=== PATIENT | female | born 1960 | race Caucasian/White ===

== ENCOUNTER 2017-03-29 12:12 | Inpatient (IN) | payer BC, OTHER ==
[~2017-03-29 12:12] MED LIST: Iopamidol 370 76% 100 ML VIAL ONE
[2017-03-29] MEDS ORDERED: Zolpidem Tartrate 5 MG TAB PO PRN (12:48)
[2017-03-29] MEDS ORDERED: Ondansetron HCl/PF 4 MG/2 ML Vial IVP PRN (12:48)
--- NOTE | 2017-03-29 12:53 | PDOC.EVN ---
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 No known HX DM. Interventions pending: CBC, CMP, Blood cultures, CT pelvis. Meds per Dr guthrie: IV Vanco. Our team will follow in-house per Dr guthrie request. I will see her after she is fully admitted and settled in after nursing intake.
[2017-03-29 13:03] VITALS: BMI 39.6
[2017-03-29 13:22] LABS: #Basophils 0.1 thou/uL (0.0-0.2); #Monocytes 1.1 thou/uL (0.11-0.59); #Neutrophils 4.8 thou/uL (1.40-6.50); %Basophils 0.9 % (0.0-1.0); %Eosinophils 0.4 % (0.0-10.0); %Lymphocytes 25.5 % (21.0-51.0); %Monocytes 13.5 % (0.0-10.0); %Neutrophils 59.8 % (42.0-75.0); Mean Corpuscular HGB CONC 32.6 g/dL (32.0-36.0); Mean Corpuscular Hemoglobin 29.9 pg (27.0-31.0); Mean Corpuscular Volume 91.6 fl (81.0-99.0); Mean Platelet Volume 6.5 fL (7.4-10.4); Platelet Count 352 thou/uL (130-400); RBC Distribution Width 12.4 % (11.5-14.5); Red Blood Cell (RBC) Count 4.68 mill/uL (4.20-5.40)
[2017-03-29 13:30] LABS: Hemoglobin A1c 4.9 % (4.0-6.0)
[2017-03-29 13:42] LABS: ALT (SGPT) 13 U/L (8-55); AST (SGOT) 7 U/L (5-34); Albumin 4.3 g/dL (3.5-5.0); Alkaline Phosphatase 77 U/L (40-150); Anion Gap 13 mmol/L (10-20); BUN (Urea Nitrogen) 15 mg/dL (9.8-20.1); Bilirubin, Total 0.6 mg/dL (0.2-1.2); Calc. Creatinine Clearance 132 mL/min (70-130); Calcium 9.8 mg/dL (7.8-10.44); Carbon Dioxide 26 mmol/L (22-29); Chloride 101 mmol/L (98-107); Estimated GFR-MDRD 73; Globulin 3.9 g/dL (2.4-3.5); Glucose 90 mg/dL (70-105); Potassium 3.5 mmol/L (3.5-5.1); Protein, Total 8.2 g/dL (6.0-8.3); Sodium 136 mmol/L (136-145)
[2017-03-29] MEDS: Lactated Ringer's 1,000 ML IV SCH (14:30)
--- NOTE | 2017-03-29 14:48 | PDOC.EVN ---
Event Note - Event Note Event Note: @1440: Lab check: CBC normal, WBC 8. CMP normal with no hyperglycemia (glu 90). Hbaic pending. Blood cultures pending. CT done but results pending. I ordered motrin for pain prn. IV antibiotics: vanco.
[2017-03-29] MEDS: Ibuprofen 800 MG TAB PO PRN (15:24)
--- NOTE | 2017-03-29 15:29 | CT ---
CT OF THE PELVIS WITH IV CONTRAST: INDICATION: Ingrown hair in the pelvic region, concern for abscess. FINDINGS: There is marked reticulation and skin thickening involving the right labia majora. No definite overt drainable fluid collection is seen involving the right labia majora. There are some mildly prominen t right inguinal lymph nodes. There is scattered diverticula involving the colon. There is mild scattered degenerative change. IMPRESSION: Findings most concerning for cellulitis of the right labia majora with some reactive lymph nodes with in the right inguinal region. Clinical followup is recommended. POS: KATTY
--- NOTE | 2017-03-29 16:02 | HP ---
ADMISSION DIAGNOSIS: Right vulvar abscess. HISTORY OF PRESENT ILLNESS: Ms. Lexi Mcgraw is a 56-year-old female patient, who presented to the office today to be seen for red and swollen area around her labia. The patient reports that for approximately 5 days, she has had increasing pain, discomfort, and swelling in her right labia. The pain is now extending outside the area of the labia with increasing tenderness in her right groin and mons. The patient denies any pustular area or discharge or drainage from the labia. She does note warmth, tenderness, and swelling. She reports low grade fevers of up 100-101 at home and feels flu-like with fever and chills ; however, she denies any URI symptoms, nausea, vomiting, or diarrhea. The patient was seen in the office and evaluated on my exam in the office. The pain was noted to be out of proportion with the area of concern. Specifically, she had significant tenderness in the right groin with enlarged lymph nodes palpable and significant tenderness of the mons despite no evidence of cellulitis outside of the right labia. She agreed to I&D in the office where a wound culture was collected. Due to the pain, fevers, and concern for infection spreading beyond the visual area of cellulitis, we discussed admission for IV antibiotics and imaging. I discussed these findings with Dr. Tapia who agrees to OB Hospitalist management once the patient is admitted. PAST MEDICAL HISTORY: Significant for obesity with a BMI of 39, irritable bowel syndrome managed by Dr. Gandhi, depression, anxiety, and hypertension. MEDICATIONS: Estradiol 1 mg, fluoxetine 15 mg a day, Hyoscyamine sulfate ER 0.375 mg 1-2 times a day, metoprolol 50 mg once a day, valsartan/HCTZ 320/25 mg once a day. PAST SURGICAL HISTORY: Significant for hysterectomy, cholecystectomy, and lap band. SOCIAL HISTORY: The patient denies any drug or latex allergies. FAMILY HISTORY: Negative for any breast, uterine, ovarian, or colon cancers; is significant for her hypertension and hypercholesterolemia. REVIEW OF SYSTEMS: Significant as stated in the HPI, otherwise negative. PHYSICAL EXAMINATION: GENERAL: No acute distress, alert and oriented. VITAL SIGNS: Weight 233 pounds, pulse 62 beats per minute, blood pressure 122/ 82. BMI 39. LUNGS: Nonlabored breathing. ABDOMEN: Obese, soft, nontender. No palpable masses. GENITOURINARY: Normal appearing left labia. Right labia; swollen, red, warm, indurated with a small area of fluctuation which was drained. The entire area of the labial abscess is palpable with no vaginal tracking noted. The area of the abscess palpates approximately 5 cm anterior posterior 2-3 cm right to left and tracks approximately 3 cm deep towards the pelvis in the labia. Purulent fluid was noted at the time of I&D and collection of wound culture. Mons palpates tender, but no crepitus or erythema or warmth noted. The right groin palpates very tender with chain lymphadenopathy noted in the right left groin. Left groin normal. EXTREMITIES: Normal. No rashes. ASSESSMENT AND PLAN: Ms. Lexi Mcgraw is a 56-year-old female with a right labial abscess with symptoms extending outside of the labia to the mons and the groin with reported fevers at home as well as myalgias. The patient is status post incision and drainage of lesion with wound culture collected and sent to [place]. IV antibiotics and pain medications have been ordered. We chosen vancomycin to cover for the likelihood of MRSA; however, discussed that antibiotic choices may change once the preliminary wound culture report comes out. A CT of the pelvis has been ordered due to the extension and discomfort of the pain through the mons into the right groin and to rule out necrotizing fasciitis. The patient's home medications have been ordered for her. The plan of care has been discussed with Dr. Tapia, the OB hospitalist linen room houseperson today. MELECIO
[2017-03-29] MEDS: Vancomycin HCl 1.5 GM in Sodium Chloride 0.9% 250 ML 300 ML IVPB SCH (16:03)
--- NOTE | 2017-03-29 16:41 | PDOC.EVN ---
Event Note - Event Note Event Note: @1640: Patient seen at bedside. Clinically well. No past HX DM. She states she was wearing a poise pad due to recent couging/URI and suspects the pad may have irritated her labia. VSAFEB. Wound culture pending (separate J number)( CT with no evidence deep tissue involvement. Has diverticula. A/P: continue Antibiotics for now.
[2017-03-29] MEDS ORDERED: Prevnar 13-Val Conj/PF 0.5 ML SYRINGE IM ONE (18:45)
[2017-03-29] MEDS ORDERED: FLU VACC QS2017-18 36 mo. & older 0.5 ML SYRINGE IM ONE (18:45)
[2017-03-29] MEDS: Hyoscyamine Sulfate ER 0.375 mg Tablet PO SCH (22:12)
[2017-03-30] MEDS: Lactated Ringer's 1,000 ML IV SCH ×2 (02:31→17:02)
[2017-03-30] MEDS: Vancomycin HCl 1.5 GM in Sodium Chloride 0.9% 250 ML 300 ML IVPB SCH ×2 (02:31→13:32)
[2017-03-30] MEDS: Ibuprofen 800 MG TAB PO PRN ×2 (04:01→16:27)
--- NOTE | 2017-03-30 06:27 | PDOC.EVN ---
Event Note - Event Note Event Note: 03/30/17 @ 0620: Patient seen at bedside (WILDLIFE REFUGE SPECIALIST NOTE). HD #2 (admitted yesterday AM). S. Doing well, fells better O. Vitals are normal, afebrile. Labs: HbA1c is less than 5 (normal). CT with diverticula and cellulitis over right labia. Blood and wound culture pending (wound culture in EMR under different ACCOUNT NUMBER...L#). Meds: IV Vanco Assessment/Plan: Resolving Right labial abscess with improving cellulitis clinicaly: continue Antibiotics, await cultures, no evidence DM at this time ni WBC elevation at admit
[2017-03-30] MEDS: Hyoscyamine Sulfate ER 0.375 mg Tablet PO SCH ×2 (09:20→21:05)
[2017-03-30] MEDS: FLUoxetine HCl 20 MG CAP PO SCH (09:20)
[2017-03-30] MEDS: Estradiol 1 MG TAB PO SCH (09:20)
[2017-03-30] MEDS: Valsartan 80 MG TAB PO SCH (09:21)
[2017-03-30] MEDS: Hydrochlorothiazide 25 MG TAB PO SCH (10:08)
[2017-03-30] MEDS: Metoprolol Tartrate 50 MG TAB PO SCH (10:08)
[2017-03-31] MEDS: Lactated Ringer's 1,000 ML IV SCH (00:56)
[2017-03-31] MEDS: Vancomycin HCl 1.5 GM in Sodium Chloride 0.9% 250 ML 300 ML IVPB SCH (02:31)
[2017-03-31] MEDS ORDERED: Sodium Chloride 0.9% 10 ML ONE (04:44)
--- NOTE | 2017-03-31 08:01 | DIS ---
DATE OF ADMISSION: 03/29/2017 DATE OF DISCHARGE: 03/31/2017 ADMITTING DIAGNOSIS: Vulvar abscess. DISCHARGE DIAGNOSIS: Vulvar abscess. PROCEDURE: I and D at the bedside. CONSULTATIONS: None. HOSPITAL COURSE: The patient is a 56-year-old female, who was admitted to the hospital for IV antibi otics for a vulvar abscess. The patient was initially evaluated by Dr. Tapia, who performed an I and D at bedside for drainage and patient was placed on vancomycin. Cultures have come back now on hosp ital day #2, and confirming Staph aureus, cadena sensitive. The patient reports that, over her hospital stay, she has had significant improvement in her pain and swelling. PHYSICAL EXAMINATION: VITAL SIGNS: Today, blood pressure is 100/52, temperature 98.1, pulse is 68, respiratory rate of 20, satting 96% on room air. GENERAL: She appears to be in no acute distress. She is alert and oriented and cooperative and plea breanna to interact with. DISCHARGE INSTRUCTIONS: The patient will be discharged to home on doxycycline to be taken twice a da y for the next week. She has been given instructions to follow up with her primary DIGITAL EDITOR, Dr. Reynolds, at [facility] within the next week or to seek medical attention sooner if she notices increasing swelling, pain, redness, or fever. Again, the patient is being discharged to home on dox ycycline.
[2017-03-31 08:40] VITALS: BP 124/61; TEMP 97.9
[2017-03-31] MEDS: Hydrochlorothiazide 25 MG TAB PO SCH (08:43)
[2017-03-31] MEDS: Metoprolol Tartrate 50 MG TAB PO SCH (08:44)
[2017-03-31] MEDS: FLUoxetine HCl 20 MG CAP PO SCH (08:45)
[2017-03-31] MEDS: Hyoscyamine Sulfate ER 0.375 mg Tablet PO SCH (08:45)
[2017-03-31] MEDS: Estradiol 1 MG TAB PO SCH (08:46)
[2017-03-31] MEDS: Valsartan 80 MG TAB PO SCH (08:46)
== END 2017-03-31 09:00 | disposition home or self-care (01) | DRG 747 ==
LOC: 3SE 12:12
PROVIDERS: ADMIT Obstetrics & Gynecology; ATTEND Obstetrics & Gynecology
PROC: 0U9MXZZ Drainage of Vulva, External Approach (ICD-10-PCS; principal; 2017-03-30)
DX: N76.4 Abscess of vulva (principal); B95.61 Methicillin susceptible Staphylococcus aureus infection as the cause of diseases classified elsewhere; N76.2 Acute vulvitis
CPT/HCPCS: 36415; 72193; 80053; 80202; 83036; 85025; 87040; A4216; J3370; J7050

== ENCOUNTER 2017-05-09 12:58 | Outpatient (CLI) | payer BC | END 2017-05-09 12:59 | disposition home or self-care (01) | LOC: BICMAMMO 12:58 | PROVIDERS: ATTEND Obstetrics & Gynecology | DX: Z12.31 Encounter for screening mammogram for malignant neoplasm of breast (principal) | CPT/HCPCS: 77063; 77067 ==

== ENCOUNTER 2018-11-03 10:08 | Inpatient (IN) | payer BC ==
[2018-11-03 10:32] LABS: #Lymphocytes 2.4 thou/uL (1.20-3.40); #Monocytes 1.7 thou/uL (0.11-0.59); #Neutrophils 12.4 thou/uL (1.40-6.50); %Basophils 0.3 % (0.0-1.0); %Eosinophils 0.2 % (0.0-10.0); %Lymphocytes 14.5 % (21.0-51.0); %Monocytes 10.1 % (0.0-10.0); Hemoglobin 14.3 g/dL (12.0-16.0); Mean Corpuscular HGB CONC 33.2 g/dL (32.0-36.0); Mean Corpuscular Hemoglobin 29.6 pg (27.0-31.0); Mean Corpuscular Volume 88.9 fL (78.0-98.0); Mean Platelet Volume 6.7 fL (7.4-10.4); Platelet Count 411 thou/uL (130-400); RBC Distribution Width 12.5 % (11.5-14.5); Red Blood Cell (RBC) Count 4.82 mill/uL (4.20-5.40); White Blood Cell (WBC) Count 16.5 thou/uL (4.8-10.8)
[2018-11-03 10:43] LABS: ALT (SGPT) 15 U/L (8-55); AST (SGOT) 7 U/L (5-34); Albumin 4.2 g/dL (3.5-5.0); Alkaline Phosphatase 77 U/L (40-110); Anion Gap 12 mmol/L (10-20); BUN (Urea Nitrogen) 14 mg/dL (9.8-20.1); Bilirubin, Total 1.3 mg/dL (0.2-1.2); Calc. Creatinine Clearance 0 mL/min (70-130); Calcium 9.4 mg/dL (7.8-10.44); Carbon Dioxide 27 mmol/L (22-29); Chloride 101 mmol/L (98-107); Estimated GFR-MDRD 68; Globulin 3.5 g/dL (2.4-3.5); Glucose 102 mg/dL (70-105); Lipase 231 U/L (8-78); Potassium 3.6 mmol/L (3.5-5.1); Protein, Total 7.7 g/dL (6.0-8.3); Sodium 136 mmol/L (136-145)
[2018-11-03 11:34] LABS: Bacteria/HPF None Seen HPF (None Seen); Bilirubin Negative (Negative); Blood, Urine 1+ (Negative); Clarity Clear (Clear); Glucose, Urine (Dipstick) Normal (Negative); Leukocyte 25 Leu/uL (Negative); Nitrite Negative (Negative); Protein, Urine (Dipstick) 20 mg/dL (Neg-Trace); Urobilinogen Normal mg/dL (Less than 2); WBC/HPF 0-3 HPF (0-3)
[2018-11-03] MEDS ORDERED: Morphine 4 MG/ML VIAL ONE (11:34)
[2018-11-03] MEDS ORDERED: Ondansetron PF 4 MG/2 ML Vial ONE (11:34)
[2018-11-03] MEDS ORDERED: ISOVUE-370 76%-LOCM 1 ML ONE (12:17)
[2018-11-03] MEDS ORDERED: Iopamidol 370 76% 50 ML VIAL FS ONE (12:17)
[2018-11-03] MEDS ORDERED: Fentanyl 100 MCG/2 ML VIAL ONE (13:57)
--- NOTE | 2018-11-03 14:52 | CT ---
CT OF THE ABDOMEN AND PELVIS WITH IV CONTRAST INDICATION: Abdominal pain that radiates into the back with nausea vomiting for 2 days; history of di verticulitis COMPARISON: CT the abdomen and pelvis dated June 14, 2010 FINDINGS: ABDOMEN: Lung bases: There is elevation the right hemidiaphragm with mild right basilar atelectasis. Liver: No focal hepatic lesion is evident. Gallbladder: Surgically absent Pancreas: There is some peripancreatic inflammatory stranding seen near the pancreatic head. There is also some wall thickening involving the second portion the duodenum. No drainable fluid collection is evident. Adrenal glands: Normal. Spleen: Normal. Kidneys: Normal. Retroperitoneum of the upper abdomen: No lymphadenopathy or free fluid is identified. Pelvis: Small and large bowel: There are scattered colonic diverticula without evidence of active diverticuli tis. There is a normal appendix in the right lower quadrant. Small bowel is of normal caliber. Bladder: Normal. Rectal and perirectal soft tissues:Normal. Reproductive structures: The uterus is not visualized. Left ovary seen within the left lower quadrant of the abdomen. Right ovary is not visualized and may be surgically absent. Free fluid in pelvis: No free fluid is evident. Lymphadenopathy pelvis: No lymphadenopathy is evident. Osseous structures: No acute osseous abnormality. No destructive osteolytic or osteoblastic lesion i s identified. There is scattered degenerative and osteoarthritic changes. IMPRESSION: 1. Some peripancreatic inflammatory stranding near the pancreatic head may reflect focal pancreatitis . This also could reflect reactive inflammatory change from a duodenitis related to peptic ulcer disease. Recommend correlation. 2. Colonic diverticulosis without evidence of active diverticulitis. 3. Other chronic findings as above
[2018-11-03] MEDS ORDERED: Fentanyl 100 MCG/2 ML VIAL SLOW IVP PRN (16:34)
[2018-11-03] MEDS ORDERED: Ondansetron PF 4 MG/2 ML Vial IVP PRN (16:35)
[2018-11-03] MEDS: Fentanyl 100 MCG/2 ML VIAL SLOW IVP PRN ×2 (16:52→21:25)
[2018-11-03 17:07] VITALS: BMI 39.6
[2018-11-03] MEDS ORDERED: Senokot S 8.6-50 MG TAB PO PRN (17:18)
[2018-11-03] MEDS: Dextrose 5 %-0.45 % NaCl 1,000 ML IV SCH (17:58)
--- NOTE | 2018-11-03 18:46 | HP ---
PRIMARY CARE PHYSICIAN: Dr. Mckeon. CHIEF COMPLAINT: Abdominal pain, nausea, vomiting. HISTORY OF PRESENT ILLNESS: Ms. Mcgraw is a very pleasant 58-year-old female who reported to the emergency room today after increasing abdominal pain, nausea, vomiting over the last 2 days. Reports that it started on . Reports the pain is more on the right side and radiates to the back. Reports that she had a cholecystectomy about 6 years ago and has had episodes of diverticulitis. Reports that she has had a history of a gastric mass, but it has been stable. The next appointment for followup is in 2020. She reports that she still has her appendix. She reports that she has recently gotten over URI, was coughing, not feeling well for about 3 weeks and just finished a course of steroids and antibiotics on Monday. She denies history of any pancreatitis. Past medical history is pertinent for diverticulitis, irritable bowel, and hypertension. While in the emergency room, she was found to have some leukocytosis with a white blood cell count of 16.5, platelet count 411, lipase of 231. Urine positive for ketones, 1+ blood, and some squamous cells. CT of the abdomen and pelvis was performed, impression some peripancreatic inflammatory stranding along the pancreatic head, which may reflect focal pancreatitis, could also reflect reactive inflammatory change from duodenitis related to a peptic ulcer. colonic diverticulosis without evidence of diverticulitis and other chronic findings as above. The patient was given fluids, IV pain medications, and nausea medication with some relief and will be admitted to the medical floor for further management. PAST MEDICAL HISTORY: Hypertension, diverticulosis, diverticulitis, obesity, irritable bowel syndrome. PAST SURGICAL HISTORY: Hysterectomy, cholecystectomy, lap band. CURRENT MEDICATIONS: 1. Estradiol 0.5 mg p.o. daily. 2. Vitamin D 2000 units daily. 3. Vitamin B12. 4. Folic acid one tab daily. 5. Valsartan 320 mg p.o. once a day. 6. Metoprolol 50 mg p.o. once a day. REVIEW OF SYSTEMS: The patient reports abdominal pain. Reports that right-sided radiates to the back. Reports some nausea and vomiting. Denies any constipation. Reports that she has diarrhea quite frequently with her IBS, but nothing new. Denies fevers. Reports some chills. Reports a lingering cough that is mildly productive. All other systems reviewed and negative unless mentioned in the HPI. PHYSICAL EXAMINATION: VITAL SIGNS: Blood pressure 117/68, respiratory rate is 18, temperature is 97.8, and pO2 sats are 98%. CONSTITUTIONAL: The patient appears nontoxic. She is alert and oriented to person, place, and time. HEENT: Head is atraumatic and normocephalic. Eyes; eyelids are normal to inspection. Pupils are equal, round, and reactive to light. ENT; mucous membranes are moist. Mouth exam is normal. NECK: Normal range of motion. Trachea is midline. RESPIRATORY/CHEST: Breath sounds are clear. There is no sign of any respiratory distress. CARDIOVASCULAR: Regular heart rate and rhythm. Heart sounds are normal. ABDOMEN: Tender to the right lower quadrant. Right upper quadrant, there is no rebound or guarding. EXTREMITIES: Upper extremity; normal inspection, normal range of motion. Radial pulses are normal. Lower extremity, normal range of motion. Motor strength is normal. Pedal pulses are normal. NEUROLOGIC: The patient is oriented to person, place, and time. Speech is normal. SKIN: Warm, dry, normal in color. PSYCH: Has a normal affect. PLAN/ASSESSMENT: 1. Pancreatitis. Keep the patient n.p.o. We will allow ice chips and medications with sips of water. We will increase diet as tolerated. 2. D5 in half-normal saline at 100 mL per hour. Pain medications fentanyl 50 mcg q.4 as needed, Zofran 4 mg p.o. q.6 hours as needed. 3. Hypertension. We will restart home medications once reconciled. 4. DVT and gastrointestinal prophylaxis have been started. 5. Case was discussed with Dr. Bautista who agrees with plan. Job ID: [id number]
[2018-11-03] MEDS: Famotidine 20 MG TAB PO SCH (20:22)
[2018-11-04] MEDS: Fentanyl 100 MCG/2 ML VIAL SLOW IVP PRN ×2 (01:42→06:14)
[2018-11-04] MEDS: Dextrose 5 %-0.45 % NaCl 1,000 ML IV SCH ×2 (01:46→14:55)
[2018-11-04 04:55] LABS: #Monocytes 1.6 thou/uL (0.11-0.59); #Neutrophils 11.7 thou/uL (1.40-6.50); %Basophils 0.1 % (0.0-1.0); %Eosinophils 0.2 % (0.0-10.0); %Lymphocytes 12.7 % (21.0-51.0); %Monocytes 10.5 % (0.0-10.0); %Neutrophils 76.5 % (42.0-75.0); Hemoglobin 12.9 g/dL (12.0-16.0); Mean Corpuscular HGB CONC 33.7 g/dL (32.0-36.0); Mean Corpuscular Hemoglobin 29.7 pg (27.0-31.0); Mean Platelet Volume 7.1 fL (7.4-10.4); Platelet Count 351 thou/uL (130-400); RBC Distribution Width 12.4 % (11.5-14.5); Red Blood Cell (RBC) Count 4.35 mill/uL (4.20-5.40); White Blood Cell (WBC) Count 15.3 thou/uL (4.8-10.8)
[2018-11-04 05:17] LABS: ALT (SGPT) 13 U/L (8-55); AST (SGOT) 7 U/L (5-34); Albumin 3.8 g/dL (3.5-5.0); Alkaline Phosphatase 72 U/L (40-110); Anion Gap 11 mmol/L (10-20); BUN (Urea Nitrogen) 7 mg/dL (9.8-20.1); Bilirubin, Total 1.1 mg/dL (0.2-1.2); Calc. Creatinine Clearance 134 mL/min (70-130); Calcium 8.6 mg/dL (7.8-10.44); Carbon Dioxide 23 mmol/L (22-29); Chloride 104 mmol/L (98-107); Estimated GFR-MDRD 76; Globulin 3.2 g/dL (2.4-3.5); Glucose 121 mg/dL (70-105); Potassium 3.7 mmol/L (3.5-5.1); Sodium 134 mmol/L (136-145)
[2018-11-04] MEDS: Famotidine 20 MG TAB PO SCH ×2 (08:02→21:10)
[2018-11-04 10:00] LABS: Cardiac Risk 2.4 (Less than 4.5)
[2018-11-04] MEDS: Morphine 4 MG/ML VIAL SLOW IVP SCH ×4 (10:15→22:23)
--- NOTE | 2018-11-04 12:59 | PDOC.HOSPP ---
- Subjective Encounter Date: 11/04/18 Encounter Time: 11:15 Subjective: c/o severe epigastric area pain radiating to back fentanyl gives 2 hrs relief still a bit nauseous, no vomiting - Objective Vital Signs & Weight: Vital Signs (12 hours) Temp Pulse Resp BP BP Pulse Ox 11/04/18 11:47 98.3 F 95 16 155/88 H 93 L 11/04/18 08:00 97 11/04/18 07:49 97.8 F 82 16 143/89 H 97 11/04/18 04:00 97.8 F 80 18 134/75 98 Weight Weight 238 lb I&O: 11/03/18 11/04/18 11/05/18 06:59 06:59 06:59 Intake Total 1000 Balance 1000 Result Diagrams: 11/04/18 04:16 11/04/18 04:16 Hospitalist ROS - Medication Medications: Active Medications Generic Name Dose Route Start Last Admin Trade Name Freq PRN Reason Stop Dose Admin Famotidine 20 mg 11/03/18 21:00 11/04/18 08:02 Pepcid PO 20 mg BID LILIANA Administration Dextrose/Sodium Chloride 1,000 mls @ 100 mls/hr 11/03/18 17:30 11/04/18 01:46 D5 1/2 Ns IV 1,000 mls .Q10H LILIANA Administration Morphine Sulfate 4 mg 11/04/18 10:00 11/04/18 10:15 Morphine SLOW IVP 4 mg Q4H LILIANA Administration Ondansetron HCl 4 mg 11/03/18 16:35 11/04/18 08:49 Zofran IVP 4 mg Q6H PRN Administration Nausea/Vomiting - Exam General Appearance: NAD, awake alert Eye: PERRL, anicteric sclera ENT: no oropharyngeal lesions, moist mucosa Neck: supple, no JVD Heart: RRR, no murmur Respiratory: no wheezes, no rales Gastrointestinal: soft, non-distended, normal bowel sounds, no palpable masses, no guarding, no rigidity, tender to palpation Extremities: no cyanosis, no edema Neurological: cranial nerve grossly intact, no focal deficits Psychiatric: normal affect, A&O x 3 Hosp A/P (1) Acute pancreatitis Code(s): K85.90 - ACUTE PANCREATITIS WITHOUT NECROSIS OR INFECTION, UNSP Status: Acute Qualifiers: Acute pancreatitis complication: unspecified (2) HTN (hypertension) Code(s): I10 - ESSENTIAL (PRIMARY) HYPERTENSION Status: Chronic Qualifiers: Hypertension type: essential hypertension Qualified Code(s): I10 - Essential (primary) hypertension (3) Obesity (BMI 30-39.9) Code(s): E66.9 - OBESITY, UNSPECIFIED Status: Chronic (4) IBS (irritable bowel syndrome) Status: Chronic Qualifiers: Irritable bowel syndrome type: unspecified Qualified Code(s): K58.9 - Irritable bowel syndrome without diarrhea (5) h/o diverticulosis Status: Chronic - Plan is on morphine prn, iv fluids clear liq diet, d/w continue toprol xl, prozac and estradiol hemostable
[2018-11-04] MEDS: Acetaminophen 325 MG TAB PO PRN (23:36)
[2018-11-05] MEDS: Dextrose 5 %-0.45 % NaCl 1,000 ML IV SCH ×3 (01:05→20:39)
[2018-11-05] MEDS: Morphine 4 MG/ML VIAL SLOW IVP SCH ×6 (02:04→22:19)
[2018-11-05 06:22] LABS: #Lymphocytes 2.3 thou/uL (1.20-3.40); #Monocytes 1.7 thou/uL (0.11-0.59); #Neutrophils 8.6 thou/uL (1.40-6.50); %Basophils 0.2 % (0.0-1.0); %Eosinophils 0.3 % (0.0-10.0); %Monocytes 13.5 % (0.0-10.0); Hemoglobin 11.9 g/dL (12.0-16.0); Mean Corpuscular HGB CONC 33.4 g/dL (32.0-36.0); Mean Corpuscular Volume 89.8 fL (78.0-98.0); Mean Platelet Volume 6.9 fL (7.4-10.4); Platelet Count 318 thou/uL (130-400); RBC Distribution Width 12.4 % (11.5-14.5); Red Blood Cell (RBC) Count 3.97 mill/uL (4.20-5.40); White Blood Cell (WBC) Count 12.6 thou/uL (4.8-10.8)
[2018-11-05 06:45] LABS: ALT (SGPT) 13 U/L (8-55); AST (SGOT) 5 U/L (5-34); Albumin 3.3 g/dL (3.5-5.0); Alkaline Phosphatase 58 U/L (40-110); Anion Gap 10 mmol/L (10-20); BUN (Urea Nitrogen) 5 mg/dL (9.8-20.1); Calc. Creatinine Clearance 147 mL/min (70-130); Carbon Dioxide 25 mmol/L (22-29); Chloride 104 mmol/L (98-107); Estimated GFR-MDRD 85; Glucose 104 mg/dL (70-105); Protein, Total 6.3 g/dL (6.0-8.3); Sodium 136 mmol/L (136-145)
[2018-11-05] MEDS: Acetaminophen 325 MG TAB PO PRN ×3 (06:54→20:24)
[2018-11-05] MEDS: Famotidine 20 MG TAB PO SCH ×2 (08:36→20:25)
[2018-11-05] MEDS: FLUoxetine HCl 20 MG CAP PO SCH (08:36)
[2018-11-05] MEDS: Estradiol 1 MG TAB PO SCH (08:36)
--- NOTE | 2018-11-05 09:28 | CON ---
DATE OF CONSULTATION: 11/04/2018 REASON FOR CONSULTATION: Abdominal pain, nausea, vomiting, and mildly elevated serum lipase. HISTORY OF PRESENT ILLNESS: Ms. Lexi Mcgraw is a very pleasant 58-year-old female, who is seeing Dr. Amauri Gandhi over the years. She has not seen Dr. Gandhi over the last 3 or 4 years. The patient has a history of gastric polyp and had a biopsy and was told to be negative. She also had I believe 4 years ago. She is scheduled to have EGD and biopsy of the lesion, I believe in 2020. The patient has had previous cholecystectomy and also lap banding by Dr. Tim Espino. The lap banding does not work anymore, the tube, banding is not filled with saline. She is not using it anymore. The patient does not drink any alcohol. She developed abdominal pain couple of days ago. The pain was over the upper abdomen and going towards the back toward the right lumbar area. She has nausea persistently. There was no fever or chills. The patient had some episodes in the past and was told she had diverticular disease. She has also history of IBS and has been on hyoscyamine. She appears comfortable; however, she says she has severe pain and the fentanyl she is getting IV is not helping her. She has had no vomiting today. Her bowel movements are very irregular. The patient has no prior history of any pancreatitis. History of IBS over the years with diarrhea. She has had multiple stools every day. She has stools 4 or 5 times a day. Her stools are loose. She was told to have IBS diarrhea by Dr. Gandhi. She takes Imodium off and on. She is supposed to take hyoscyamine for the IBS pains. She came to the ER because of abdominal pain, nausea, and had abdominal CAT scan. The CAT scan showed some mild peripancreatic edema around the head of the pancreas. Serum lipase is also elevated at 231. Her liver function tests are normal. She has no other relevant history. PAST MEDICAL HISTORY: 1. Hypertension. 2. Obesity, status post lap gastric band. 3. Diverticular disease. 4. IBS diarrhea. 5. Gastric polyp. PAST SURGICAL HISTORY: 1. Hysterectomy. She has had ovaries left. 2. Cholecystectomy. 3. Lap banding by Dr. Tim Espino. MEDICATIONS: 1. Estradiol 0.5 mg once a day. 2. Vitamin D 2000 units daily. 3. Vitamin B12. 4. Folic acid 1 mg once a day. 5. Valsartan 320 mg once a day. 6. Metoprolol 50 once a day. SOCIAL HISTORY: The patient does not smoke or drink alcohol. No illicit drug use. REVIEW OF SYSTEMS: Ten-point system review, CONSTITUTIONAL: No history of weight loss. No fever. She has good exercise tolerance and good energy level. HEAD: No chronic headache. EYES: No diplopia. No impaired vision. EARS: No hearing loss. No bleeding. NOSE: No nosebleed. THROAT: No sore throat or dysphagia. NECK: No stiffness or limitation of movement. LUNGS: No chronic coughing. No hemoptysis. No dyspnea. CARDIOVASCULAR: No chest pain. No palpitation. No dyspnea, orthopnea, or PND. GI: Abdominal pain, nausea, history of IBS diarrhea. GENITOURINARY: No dysuria or hematuria. MUSCULOSKELETAL: Unremarkable. NEUROENDOCRINE: Unremarkable. PSYCHIATRY: Unremarkable. PHYSICAL EXAMINATION: GENERAL: She is obese, appears comfortable, in no acute distress. VITAL SIGNS: Stable. Afebrile. Pulse is 82, blood pressure is 143/89. HEENT: Conjunctivae clear. NECK: Supple. No adenitis or thyromegaly noted. CARDIOVASCULAR: First and second heart sounds heard. LUNGS: Clear to auscultation. ABDOMEN: Soft and nondistended. Abdomen is mildly tender, however. There is no rebound or guarding. Overall the exam is very benign. EXTREMITIES: Reveal no edema. LABORATORY DATA: CBC; WBC is elevated to 16,500, today came down to 15,300, hemoglobin is 14.3, hematocrit is 42.9, MCV is 88, platelet count is 411,000, today 351,000, polymorphs 76, lymphocytes 12, monocytes 10, serum lipase slightly high at 231. Liver function tests are likely normal. AST is 7, ALT is 13, alkaline phosphatase is 72, bilirubin is 1.1. Lytes are normal. BUN is 7, creatinine is 0.78, glucose is 121, lipase is 231. IMAGING STUDIES: The abdominal CAT scan done showed peripancreatic edema over the head of the pancreas indicative of pancreatitis. She also has colonic diverticular disease. CLINICAL IMPRESSION: 1. Abdominal pain, nausea, with mildly elevated lipase. She most likely has pancreatitis. However, her abdominal pain maybe a combination of both irritable bowel syndrome and also pancreatitis. The abdominal exam is very benign, at the same time she complains of severe abdominal pain. The etiology of pancreatitis is unclear as she does not drink alcohol. She has had prior cholecystectomy. 2. Obesity. 3. Hypertension. 4. Gastric polyp. 5. Irritable bowel syndrome diarrhea. 6. History of diverticular disease. RECOMMENDATIONS: 1. Keep n.p.o. 2. IV fluids. 3. Analgesics, we will change fentanyl to morphine [address] Gandhi care from tomorrow. Job ID: [id number]
--- NOTE | 2018-11-05 14:04 | PRG ---
DATE OF SERVICE: 11/05/2018 SUBJECTIVE: Ms. Mcgraw says she is feeling a lot better today. She did still get morphine overnight and this morning, the nausea has improved. Abdominal discomfort is significantly improved. She was started on clear liquids for lunch and is doing fine with this so far. She has remained hemodynamically stable. OBJECTIVE: VITAL SIGNS: Temperature 98.2, pulse 80, blood pressure 147/75, and 96% oxygen saturation on room air. GENERAL: No acute distress. HEART: Regular rate and rhythm. LUNGS: Clear to auscultation bilaterally. ABDOMEN: Nondistended. Bowel sounds are hypoactive, but present. Soft and some tenderness to palpation in the upper abdomen. No guarding or rebound tenderness. EXTREMITIES: No peripheral edema. LABORATORY STUDIES: WBC down to 12.6, hemoglobin 11.9, and platelets 318. Sodium 136, potassium 3.0, BUN 5, creatinine 0.71, albumin 3.3, total bilirubin 1.0, alkaline phosphatase 58, AST 5, and ALT 13. ASSESSMENT AND PLAN: 1. Acute pancreatitis, idiopathic, mild. 2. Abdominal pain, secondary to pancreatitis, improving. The patient has had some clinical improvement in her pancreatitis. She is status post cholecystectomy with normal LFTs and does not drink alcohol, so the etiology is unknown. She did have a recent steroid taper, but this is of unknown significance with regard to the pancreatitis episode. Regardless, she does clinically seem to be improving. Agree with advancing diet as tolerated, if she is able to stop using the morphine. Hopefully, she will be able to be discharged within the next day or two. Please call back anytime with questions or concerns. Job ID: [id number]
--- NOTE | 2018-11-05 15:05 | PDOC.HOSPP ---
- Subjective Encounter Date: 11/05/18 Encounter Time: 12:00 Subjective: no abd pain or nausea is sitting in chair, ambulating in room - Objective Vital Signs & Weight: Vital Signs (12 hours) Temp Pulse Resp BP Pulse Ox 11/05/18 14:17 80 16 120/77 11/05/18 08:45 96 11/05/18 07:57 98.2 F 80 16 147/75 H 96 Weight Admit Weight 238 lb Weight 238 lb I&O: 11/04/18 11/05/18 11/06/18 06:59 06:59 06:59 Intake Total 1000 2420 Balance 1000 2420 Result Diagrams: 11/05/18 05:34 11/05/18 05:34 Hospitalist ROS - Medication Medications: Active Medications Generic Name Dose Route Start Last Admin Trade Name Freq PRN Reason Stop Dose Admin Acetaminophen 650 mg 11/03/18 17:18 11/05/18 14:13 Tylenol PO 650 mg Q4H PRN Administration Headache/Fever/Mild Pain (1-3) Estradiol 1 mg 11/05/18 09:00 11/05/18 08:36 Estrace PO 1 mg DAILY LILIANA Administration Famotidine 20 mg 11/03/18 21:00 11/05/18 08:36 Pepcid PO 20 mg BID LILIANA Administration Fluoxetine HCl 20 mg 11/05/18 09:00 11/05/18 08:36 Prozac PO 20 mg DAILY LILIANA Administration Dextrose/Sodium Chloride 1,000 mls @ 100 mls/hr 11/03/18 17:30 11/05/18 10:07 D5 1/2 Ns IV 1,000 mls .Q10H LILIANA Administration Metoprolol Succinate 50 mg 11/05/18 09:00 11/05/18 08:36 Toprol Xl PO 50 mg DAILY LILIANA Administration Morphine Sulfate 4 mg 11/04/18 10:00 11/05/18 14:14 Morphine SLOW IVP Not Given Q4H LILIANA Ondansetron HCl 4 mg 11/03/18 16:35 11/04/18 08:49 Zofran IVP 4 mg Q6H PRN Administration Nausea/Vomiting - Exam General Appearance: NAD, awake alert Eye: PERRL, anicteric sclera ENT: no oropharyngeal lesions, moist mucosa Neck: supple, no JVD Heart: RRR, no murmur Respiratory: no wheezes, no rales Gastrointestinal: soft, non-tender, non-distended, normal bowel sounds Extremities: no cyanosis, no edema Neurological: cranial nerve grossly intact, no focal deficits Psychiatric: normal affect, A&O x 3 Hosp A/P (1) Acute pancreatitis Code(s): K85.90 - ACUTE PANCREATITIS WITHOUT NECROSIS OR INFECTION, UNSP Status: Acute Qualifiers: Acute pancreatitis complication: unspecified (2) HTN (hypertension) Code(s): I10 - ESSENTIAL (PRIMARY) HYPERTENSION Status: Chronic Qualifiers: Hypertension type: essential hypertension Qualified Code(s): I10 - Essential (primary) hypertension (3) Obesity (BMI 30-39.9) Code(s): E66.9 - OBESITY, UNSPECIFIED Status: Chronic (4) IBS (irritable bowel syndrome) Status: Chronic Qualifiers: Irritable bowel syndrome type: unspecified Qualified Code(s): K58.9 - Irritable bowel syndrome without diarrhea (5) h/o diverticulosis Status: Chronic - Plan is on morphine prn, iv fluids solid diet, likely dc plan in am if stable continue toprol xl, prozac and estradiol hemostable
[2018-11-05] MEDS ORDERED: Sodium Chloride 0.65% Nasal 44 ML BOT EA NARE PRN (17:54)
[2018-11-06] MEDS: Acetaminophen 325 MG TAB PO PRN (05:55)
[2018-11-06] MEDS: Morphine 4 MG/ML VIAL SLOW IVP SCH ×3 (06:07→10:14)
[2018-11-06] MEDS: Dextrose 5 %-0.45 % NaCl 1,000 ML IV SCH (06:08)
[2018-11-06 07:20] VITALS: BP 157/80; TEMP 98
[2018-11-06] MEDS: Famotidine 20 MG TAB PO SCH (08:36)
[2018-11-06] MEDS: Estradiol 1 MG TAB PO SCH (08:36)
[2018-11-06] MEDS: FLUoxetine HCl 20 MG CAP PO SCH (08:36)
--- NOTE | 2018-11-06 18:32 | DIS ---
DATE OF ADMISSION: 11/03/2018 DATE OF DISCHARGE: 11/06/2018 DISCHARGE DISPOSITION: Home. PRIMARY DISCHARGE DIAGNOSIS: Acute pancreatitis with unknown etiology, resolving. SECONDARY DISCHARGE DIAGNOSES: History of irritable bowel syndrome, hypertension, obesity, prior history of diverticulosis. PROCEDURES DONE DURING HOSPITALIZATION: CT of the abdomen and pelvis with IV contrast done on the day of admission showed findings of peripancreatic inflammatory stranding near the pancreatic head. There was colonic diverticulosis without evidence of active diverticulitis. Had a white count of 16 on the day of admission with 75% neutrophils. Liver enzymes were within normal limits. Total cholesterol 119, triglycerides 93, LDL 51, HDL 49, lipase was 231. DISCHARGE MEDICATION: 1. Fluoxetine 20 mg p.o. daily. 2. Estradiol 1 mg p.o. daily. 3. Vitamin D3 2000 units p.o. daily. 4. Toprol-XL 50 mg p.o. daily. 5. Valsartan with hydrochlorothiazide 320/12.5 mg p.o. daily. ALLERGIES: NO KNOWN DRUG ALLERGIES. DISCHARGE PLAN: The patient to follow up with Dr. Augustine Valdez in 2 weeks. She also needs to follow up with her primary care physician Dr. Tima Dorantes in 1 week BRIEF COURSE DURING HOSPITALIZATION: The patient initially came to ER with complaints of epigastric abdominal pain with radiation to the back. She had severe nausea, vomiting and was unable to eat or drink for [address] of the abdomen and pelvis done showed findings of pancreatitis. She was kept n.p.o. and was generously hydrated. She has had consultation with Dr. Lerma for Gastroenterology and Dr. Augutsine Valdez. She was slowly weaned into solid low-fat diet. Her pain completely resolved in 24 hours. She has been ambulating and eating well. The etiology for her pancreatitis is unclear. The patient likely will need outpatient endoscopy to rule out peptic ulcer when she follows up with Dr. Augustine Valdez in 2 weeks. She is hemodynamically stable and will be shortly discharged home. Please note, I have seen and examined the patient on the day of discharge. Job ID: [id number]
--- NOTE | 2018-11-07 05:18 | PQF ---
[facility] Professor Crystal Reports Winform Viewer VISHAL LEYVA CHRISTEN DENNISON MD [id number] CLINICAL DOCUMENTATION CLARIFICATION FORM: POST DISCHARGE Addendum to original discharge summary date: ____ Late entry note date: __ DATE: 11/07/18 ATTN: Christen Leo Please exercise your independent, professional judgment in responding to the clarification form. Clinical indicators are provided on the bottom of this form for your review Can you please further specify the diagnosis based on the clinical indicators below? Please check appropriate box(s): [ ] Hyponatremia [ x] Insignificant laboratory findings [ ] Other diagnosis please specify [ ] Unable to determine In addition, please specify: Present on Admission (POA): [ ] Yes [ ] No [ ] Unable to determine For continuity of documentation, please document condition throughout progress notes and discharge summary. Thank You. CLINICAL INDICATORS - SIGNS / SYMPTOMS/ LABS are present in the medical record: H and P 11/03 pg.1- Chief complaint: Abdominal pain, nausea, vomiting Consult Dr. Lerma 11/04 pg.1- She has stools 4 or 5 days a day. Her stool are loose Laboratory- Sodium 136, 134L, 136 RISK FACTORS Obesity- H and P pg.1 Hypertension- H and P pg.1 Pancreatitis- H and P pg.2 IBS diarrhea- Consult Dr. Lerma 11/04 pg.1 TREATMENT DS in half-normal saline at 100ml per hour- Leahy nd P pg.2 Dextrose 5%- 0.45% NaCl (D51/2Ns) 100ml- MAR 11/03 (This form is maintained as a part of the permanent medical record) 2014 [employer]. All Rights Reserved [email or web address] [not provided] MTDD
== END 2018-11-06 11:46 | disposition home or self-care (01) | DRG 440 ==
LOC: ERS 10:08 → T4-A 16:37
PROVIDERS: ADMIT Family Medicine; ATTEND Family Medicine
DX: K85.90 Acute pancreatitis without necrosis or infection, unspecified (principal); I10 Essential (primary) hypertension; E66.9 Obesity, unspecified; K58.0 Irritable bowel syndrome with diarrhea; K57.90 Diverticulosis of intestine, part unspecified, without perforation or abscess without bleeding; Z79.899 Other long term (current) drug therapy; Z68.39 Body mass index [BMI] 39.0-39.9, adult; Z90.49 Acquired absence of other specified parts of digestive tract; Z90.710 Acquired absence of both cervix and uterus; Z93.1 Gastrostomy status
CPT/HCPCS: 36415; 74177; 80053; 80061; 81003; 81015; 83690; 85025; 96361; 96374; 96375; J2270; J2405; J3010; Q9966; Q9967

== ENCOUNTER 2021-10-07 13:01 | Inpatient (IN) | payer BC ==
[2021-10-07 13:43] LABS: #Lymphocytes 2.4 thou/uL (1.20-3.40); #Monocytes 1.7 thou/uL (0.11-0.59); #Neutrophils 11.5 thou/uL (1.40-6.50); %Basophils 0.3 % (0.0-1.0); %Eosinophils 0.3 % (0.0-10.0); %Lymphocytes 15.2 % (21.0-51.0); %Neutrophils 73.2 % (42.0-75.0); Hemoglobin 14.7 g/dL (12.0-16.0); Mean Corpuscular HGB CONC 33.3 g/dL (32.0-36.0); Mean Corpuscular Hemoglobin 29.7 pg (27.0-31.0); Mean Corpuscular Volume 89.1 fL (78.0-98.0); Mean Platelet Volume 7.2 fL (7.4-10.4); Platelet Count 362 thou/uL (130-400); RBC Distribution Width 12.2 % (11.5-14.5); Red Blood Cell (RBC) Count 4.96 mill/uL (4.20-5.40); White Blood Cell (WBC) Count 15.7 thou/uL (4.8-10.8)
[2021-10-07 13:51] LABS: Bacteria/HPF 2+ HPF (None Seen); Bilirubin Negative (Negative); Blood, Urine 3+ (Negative); Clarity Turbid (Clear); Glucose, Urine (Dipstick) Normal (Negative); Ketone, Urine 80 mg/dL (Negative); Leukocyte 250 Leu/uL (Negative); Nitrite 2+ (Negative); Protein, Urine (Dipstick) 70 mg/dL (Neg-Trace); Specific Gravity, Urine 1.034 (1.002-1.036)
[2021-10-07 13:52] LABS: WBC/HPF 21-50 HPF (0-3)
[2021-10-07 14:08] LABS: ALT (SGPT) 20 U/L (8-55); AST (SGOT) 8 U/L (5-34); Albumin 4.4 g/dL (3.4-4.8); Alkaline Phosphatase 75 U/L (40-110); Anion Gap 17 mmol/L (10-20); BUN (Urea Nitrogen) 14 mg/dL (9.8-20.1); Bilirubin, Total 1.5 mg/dL (0.2-1.2); Calc. Creatinine Clearance 0 mL/min (70-130); Calcium 9.7 mg/dL (7.8-10.44); Carbon Dioxide 23 mmol/L (23-31); Chloride 100 mmol/L (98-107); Estimated GFR 85; Glucose 99 mg/dL (80-115); Lipase 130 U/L (8-78); Potassium 3.4 mmol/L (3.5-5.1); Protein, Total 8.4 g/dL (5.8-8.1); Sodium 137 mmol/L (136-145)
[2021-10-07] MEDS ORDERED: Iopamidol-370 76% 500 ML 1 ML ONE (14:48)
[2021-10-07] MEDS ORDERED: Morphine 4 MG/ML VIAL ONE ×2 (16:42→17:53)
[2021-10-07] MEDS ORDERED: Ondansetron PF 4 MG/2 ML Vial ONE (16:43)
[2021-10-07] MEDS ORDERED: Acetaminophen 650 MG Suppository PR PRN (18:13)
[2021-10-07] MEDS ORDERED: Guaifenesin DM 100-10/5 ML UDCUP PO PRN (18:13)
[2021-10-07] MEDS ORDERED: Ondansetron ODT 4 MG TAB PO PRN (18:13)
[2021-10-07] MEDS ORDERED: Ondansetron PF 4 MG/2 ML Vial IVP PRN (18:13)
[2021-10-07] MEDS ORDERED: hydrALAZINE 20 MG/ML VIAL SLOW IVP PRN (18:22)
[2021-10-07] MEDS ORDERED: cefTRIAXone\\ROCEPHIN 1 GM in Sodium Chloride 0.9% 100 ML IVPB SCH (19:00)
[2021-10-07 19:25] LABS: Cardiac Risk 2.9 (Less than 4.5)
[2021-10-07] MEDS ORDERED: Piperacillin/Tazobactam 4.5 GM VIAL ONE (19:36)
[2021-10-07] MEDS: Sodium Chloride 0.9% 1,000 ML IV SCH (20:00)
[2021-10-07] MEDS ORDERED: diphenhydrAMINE 50 MG/ML VIAL IVP PRN (20:17)
[2021-10-07] MEDS ORDERED: diphenhydrAMINE 50 MG/ML VIAL ONE (20:19)
[2021-10-07] MEDS: Famotidine 20 MG TAB PO SCH (20:55)
[2021-10-07] MEDS ORDERED: Piperacillin/Tazobactam 3.375 GM in Sodium Chloride 0.9% 100 ML IVPB SCH (22:00)
[2021-10-07] MEDS: Famotidine/PF 20 mg/2ml Vial SLOW IVP SCH (22:25)
[2021-10-07] MEDS: Morphine 2 MG/ML VIAL SLOW IVP PRN (22:25)
[2021-10-07 23:17] VITALS: BMI 39.6
[2021-10-08] MEDS: Sodium Chloride 0.9% 1,000 ML IV SCH ×3 (03:00→23:26)
[2021-10-08 06:51] LABS: #Eosinphils 0.1 thou/uL (0.0-0.7); #Lymphocytes 2.1 thou/uL (1.20-3.40); #Monocytes 1.3 thou/uL (0.11-0.59); #Neutrophils 7.8 thou/uL (1.40-6.50); %Basophils 0.4 % (0.0-1.0); %Eosinophils 0.5 % (0.0-10.0); %Lymphocytes 18.4 % (21.0-51.0); %Monocytes 11.2 % (0.0-10.0); %Neutrophils 69.5 % (42.0-75.0); Hemoglobin 12.3 g/dL (12.0-16.0); Mean Corpuscular HGB CONC 32.6 g/dL (32.0-36.0); Mean Corpuscular Hemoglobin 29.4 pg (27.0-31.0); Mean Corpuscular Volume 90.2 fL (78.0-98.0); Mean Platelet Volume 7.3 fL (7.4-10.4); Platelet Count 320 thou/uL (130-400); RBC Distribution Width 12.2 % (11.5-14.5); Red Blood Cell (RBC) Count 4.17 mill/uL (4.20-5.40); White Blood Cell (WBC) Count 11.1 thou/uL (4.8-10.8)
[2021-10-08] MEDS: Morphine 2 MG/ML VIAL SLOW IVP PRN ×2 (06:56→21:23)
[2021-10-08 07:16] LABS: ALT (SGPT) 14 U/L (8-55); AST (SGOT) 6 U/L (5-34); Albumin 3.4 g/dL (3.4-4.8); Alkaline Phosphatase 59 U/L (40-110); Anion Gap 13 mmol/L (10-20); BUN (Urea Nitrogen) 14 mg/dL (9.8-20.1); Calc. Creatinine Clearance 144 mL/min (70-130); Calcium 8.3 mg/dL (7.8-10.44); Carbon Dioxide 24 mmol/L (23-31); Chloride 106 mmol/L (98-107); Estimated GFR 98; Glucose 89 mg/dL (80-115); Lipase 53 U/L (8-78); Magnesium 1.9 mg/dL (1.6-2.6); Potassium 3.2 mmol/L (3.5-5.1); Protein, Total 6.4 g/dL (5.8-8.1); Sodium 140 mmol/L (136-145)
[2021-10-08] MEDS: Famotidine/PF 20 mg/2ml Vial SLOW IVP SCH ×2 (09:28→21:10)
[2021-10-08] MEDS: Famotidine 20 MG TAB PO SCH ×2 (09:30→21:16)
[2021-10-08] MEDS: Acetaminophen 325 MG TAB PO PRN ×2 (09:46→23:25)
[2021-10-08] MEDS ORDERED: cefTRIAXone\\ROCEPHIN 1 GM in Sodium Chloride 0.9% 100 ML IVPB SCH (10:00)
[2021-10-08] MEDS ORDERED: Electrolyte Replacement Protocol 1 EACH FS SCH (11:15)
[2021-10-08] MEDS ORDERED: Magnesium 2 GM/50 ML(in water) 2 GM in Premix Bag 1 BAG IVPB SCH (14:00)
[2021-10-08] MEDS: Potassium Chloride 20 MEQ in Premix Bag 1 BAG IVPB SCH ×2 (14:21→17:16)
[2021-10-08] MEDS ORDERED: Iopamidol 370 76% 100 ML VIAL ONE (15:09)
[2021-10-08] MEDS: Enoxaparin Sodium 40 MG/0.4 ML SYRINGE SC SCH (21:16)
[2021-10-09 07:06] LABS: #Eosinphils 0.1 thou/uL (0.0-0.7); #Monocytes 0.8 thou/uL (0.11-0.59); %Basophils 0.4 % (0.0-1.0); %Eosinophils 0.9 % (0.0-10.0); %Lymphocytes 25.5 % (21.0-51.0); %Monocytes 10.1 % (0.0-10.0); %Neutrophils 63.1 % (42.0-75.0); Hemoglobin 11.7 g/dL (12.0-16.0); Mean Corpuscular Hemoglobin 28.9 pg (27.0-31.0); Mean Corpuscular Volume 90.3 fL (78.0-98.0); Mean Platelet Volume 7.2 fL (7.4-10.4); Platelet Count 323 thou/uL (130-400); Red Blood Cell (RBC) Count 4.06 mill/uL (4.20-5.40); White Blood Cell (WBC) Count 7.9 thou/uL (4.8-10.8)
[2021-10-09 07:24] LABS: Anion Gap 15 mmol/L (10-20); BUN (Urea Nitrogen) 12 mg/dL (9.8-20.1); Calc. Creatinine Clearance 157 mL/min (70-130); Calcium 8.2 mg/dL (7.8-10.44); Carbon Dioxide 20 mmol/L (23-31); Chloride 109 mmol/L (98-107); Estimated GFR 100; Glucose 77 mg/dL (80-115); Lipase 42 U/L (8-78); Potassium 3.6 mmol/L (3.5-5.1); Sodium 140 mmol/L (136-145)
[2021-10-09] MEDS ORDERED: LACTINEX 1 TAB PO SCH (09:00)
[2021-10-09] MEDS: Famotidine/PF 20 mg/2ml Vial SLOW IVP SCH ×2 (09:18→20:34)
[2021-10-09] MEDS: Famotidine 20 MG TAB PO SCH ×2 (09:18→20:35)
[2021-10-09] MEDS ORDERED: Loperamide HCl 1 MG/7.5 ML UDCUP PO PRN (12:33)
[2021-10-09] MEDS: Sodium Chloride 0.9% 1,000 ML IV SCH (14:23)
[2021-10-09] MEDS ORDERED: Hyoscyamine Sulfate SL 0.125 mg Tablet PO PRN (15:22)
[2021-10-09] MEDS: Sulfameth/Trimethoprim DS 800-160mg TAB PO SCH (20:35)
[2021-10-09] MEDS: Enoxaparin Sodium 40 MG/0.4 ML SYRINGE SC SCH (20:38)
[2021-10-09 20:58] VITALS: TEMP 97.8
[2021-10-10 06:56] LABS: Anion Gap 14 mmol/L (10-20); BUN (Urea Nitrogen) 9 mg/dL (9.8-20.1); Calc. Creatinine Clearance 142 mL/min (70-130); Calcium 8.5 mg/dL (7.8-10.44); Carbon Dioxide 22 mmol/L (23-31); Chloride 108 mmol/L (98-107); Estimated GFR 97; Glucose 88 mg/dL (80-115); Magnesium 2.1 mg/dL (1.6-2.6); Sodium 140 mmol/L (136-145)
[2021-10-10 08:20] VITALS: BP 113/72
[2021-10-10] MEDS ORDERED: Floranex 1 GM Packet PO SCH (09:00)
[2021-10-10] MEDS: Famotidine/PF 20 mg/2ml Vial SLOW IVP SCH (09:21)
[2021-10-10] MEDS: Sulfameth/Trimethoprim DS 800-160mg TAB PO SCH (09:26)
[2021-10-10] MEDS: Famotidine 20 MG TAB PO SCH (09:26)
== END 2021-10-10 11:03 | disposition home or self-care (01) | DRG 871 ==
LOC: ERS 13:01 → T4-A 18:25
PROVIDERS: ADMIT Internal Medicine; ATTEND Internal Medicine
DX: A41.51 Sepsis due to Escherichia coli [E. coli] (principal); K85.90 Acute pancreatitis without necrosis or infection, unspecified; N30.01 Acute cystitis with hematuria; Z20.822 Contact with and (suspected) exposure to COVID-19; N28.1 Cyst of kidney, acquired; E87.6 Hypokalemia; Z96.651 Presence of right artificial knee joint; I10 Essential (primary) hypertension; E66.9 Obesity, unspecified; K58.0 Irritable bowel syndrome with diarrhea; Z68.39 Body mass index [BMI] 39.0-39.9, adult; Z88.1 Allergy status to other antibiotic agents; Z88.0 Allergy status to penicillin; Z79.899 Other long term (current) drug therapy; Z90.710 Acquired absence of both cervix and uterus; Z82.3 Family history of stroke; Z82.49 Family history of ischemic heart disease and other diseases of the circulatory system; Z83.6 Family history of other diseases of the respiratory system; Z80.8 Family history of malignant neoplasm of other organs or systems; Z83.3 Family history of diabetes mellitus
CPT/HCPCS: 36415; 74177; 74178; 74181; 80048; 80053; 80061; 81003; 81015; 83605; 83690; 83735; 85025; 87040; 87077; 87086; 87186; 93005; 96361; 96374; 96375; 96376; J1200; J1650; J1956; J2270; J2405; J2543; J3475; J3480; J7050; Q9967; S0028; U0003; U0005

== ENCOUNTER 2021-11-20 16:03 | Emergency (ER) | payer BC ==
[~2021-11-20 16:03] MED LIST changes: -Iopamidol 370 76% 100 ML VIAL ONE; +Iopamidol-370 76% 500 ML 1 ML ONE
[2021-11-20 16:38] LABS: #Lymphocytes 1.9 thou/uL (1.20-3.40); #Monocytes 0.9 thou/uL (0.11-0.59); #Neutrophils 6.7 thou/uL (1.40-6.50); %Basophils 0.2 % (0.0-1.0); %Eosinophils 0.2 % (0.0-10.0); %Monocytes 9.5 % (0.0-10.0); %Neutrophils 70.2 % (42.0-75.0); Hemoglobin 15.3 g/dL (12.0-16.0); Mean Corpuscular HGB CONC 33.1 g/dL (32.0-36.0); Mean Corpuscular Hemoglobin 29.7 pg (27.0-31.0); Mean Corpuscular Volume 89.7 fL (78.0-98.0); Mean Platelet Volume 7.1 fL (7.4-10.4); Platelet Count 410 thou/uL (130-400); RBC Distribution Width 12.5 % (11.5-14.5); Red Blood Cell (RBC) Count 5.14 mill/uL (4.20-5.40); White Blood Cell (WBC) Count 9.5 thou/uL (4.8-10.8)
[2021-11-20 16:49] LABS: ALT (SGPT) 18 U/L (8-55); AST (SGOT) 9 U/L (5-34); Albumin 4.7 g/dL (3.4-4.8); Alkaline Phosphatase 73 U/L (40-110); Anion Gap 15 mmol/L (10-20); BUN (Urea Nitrogen) 11 mg/dL (9.8-20.1); Bilirubin, Total 1.3 mg/dL (0.2-1.2); Calc. Creatinine Clearance 0 mL/min (70-130); Calcium 10.2 mg/dL (7.8-10.44); Carbon Dioxide 25 mmol/L (23-31); Chloride 104 mmol/L (98-107); Estimated GFR 81; Globulin 3.8 g/dL (2.4-3.5); Glucose 105 mg/dL (80-115); Lipase 24 U/L (8-78); Potassium 3.8 mmol/L (3.5-5.1); Protein, Total 8.5 g/dL (5.8-8.1); Sodium 140 mmol/L (136-145)
[2021-11-20 17:07] LABS: Bacteria/HPF 1+ HPF (None Seen); Bilirubin Negative (Negative); Blood, Urine Trace (Negative); Clarity Clear (Clear); Glucose, Urine (Dipstick) Normal (Negative); Ketone, Urine Negative (Negative); Leukocyte 25 Leu/uL (Negative); Nitrite Negative (Negative); Protein, Urine (Dipstick) Negative (Neg-Trace); RBC/HPF 0-3 HPF (0-3); Specific Gravity, Urine 1.005 (1.002-1.036); Squamous Epithelial 0-3 HPF (0-3); Urobilinogen Normal mg/dL (Less than 2); WBC/HPF 0-3 HPF (0-3)
[2021-11-20] MEDS ORDERED: Morphine 4 MG/ML VIAL ONE (17:34)
[2021-11-20] MEDS ORDERED: Ondansetron PF 4 MG/2 ML Vial ONE (17:34)
== END 2021-11-20 19:20 | disposition home or self-care (01) ==
LOC: ERS 16:03
DX: R10.30 Lower abdominal pain, unspecified (principal); I10 Essential (primary) hypertension
CPT/HCPCS: 36415; 74177; 80053; 81003; 81015; 83690; 85025; 96361; 96374; 96375; J2270; J2405; Q9967

== ENCOUNTER 2022-06-06 07:39 | Outpatient (CLI) | payer BC ==
[2022-06-06] MEDS ORDERED: Iopamidol 370 76% 100 ML VIAL ONE (09:07)
== END 2022-06-06 07:40 | disposition home or self-care (01) ==
LOC: BICCT 07:39 → CT 07:40
PROVIDERS: ATTEND Internal Medicine Gastroenterology
DX: K85.90 Acute pancreatitis without necrosis or infection, unspecified (principal); D17.71 Benign lipomatous neoplasm of kidney; K31.89 Other diseases of stomach and duodenum; K76.0 Fatty (change of) liver, not elsewhere classified
CPT/HCPCS: 74170; 82565

== ENCOUNTER 2023-07-20 20:35 | Observation (INO) | payer BC ==
[2023-07-20 22:05] LABS: #Basophils 0.04 10x3/uL (0.0-0.2); #Eosinphils Less than 0.03 10x3/uL (0.0-0.7); %Basophils 0.4 % (0.0-1.0); %Eosinophils 0.1 % (0.0-10.0); %Monocytes 9.9 % (0.0-10.0); %Neutrophils 72.4 % (42.0-75.0); Hematocrit 43.1 % (36.0-47.0); Hemoglobin 14.3 g/dL (12.0-16.0); Mean Corpuscular HGB CONC 33.2 g/dL (32.0-36.0); Mean Corpuscular Hemoglobin 29.2 pg (27.0-31.0); Mean Platelet Volume 9.2 fL (7.4-10.4); Platelet Count 370 10x3/uL (130-400); RBC Distribution Width 13.2 % (11.5-14.5)
[2023-07-20 22:31] LABS: ALT (SGPT) 19 U/L (8-55); AST (SGOT) 8 U/L (5-34); Albumin 4.1 g/dL (3.4-4.8); Alkaline Phosphatase 84 U/L (40-110); Anion Gap 18 mmol/L (10-20); BUN (Urea Nitrogen) 13 mg/dL (9.8-20.1); Bilirubin, Total 0.7 mg/dL (0.2-1.2); CK (CPK) 52 U/L (29-168); Calc. Creatinine Clearance 0 mL/min (70-130); Calcium 9.6 mg/dL (7.8-10.44); Carbon Dioxide 21 mmol/L (23-31); Chloride 105 mmol/L (98-107); Digoxin Less than 0.19 ng/mL (0.8-2.0); Estimated GFR 76; Globulin 3.8 g/dL (2.4-3.5); Glucose 109 mg/dL (80-115); Lipase 34 U/L (8-78); Potassium 3.2 mmol/L (3.5-5.1); Protein, Total 7.9 g/dL (5.8-8.1); Sodium 141 mmol/L (136-145)
[2023-07-20 22:31] LABS: Acetaminophen Less than 10 mcg/mL (10.0-30.0); Alcohol Less than 10.0 mg/dL (Less than 10); Salicylate Less than 8.0 mg/dL (15.0-30.0)
[2023-07-20 22:39] LABS: Troponin I Less than 0.010 ng/mL (< 0.028)
[2023-07-20] MEDS ORDERED: Aspirin Chewable 81 MG TAB ONE (23:04)
[2023-07-20 23:25] LABS: Bacteria/HPF None Seen HPF (None Seen); Bilirubin Negative (Negative); Blood, Urine Trace (Negative); CAUTI Indications for Culture Dysuria,urgency,freq; Clarity Clear (Clear); Glucose, Urine (Dipstick) Normal (Negative); Ketone, Urine Negative (Negative); Leukocyte 75 Leu/uL (Negative); Nitrite Negative (Negative); Protein, Urine (Dipstick) Negative (Neg-Trace); RBC/HPF 0-3 HPF (0-3); Specific Gravity, Urine 1.016 (1.002-1.036); Squamous Epithelial None Seen HPF (0-3); Urobilinogen Normal mg/dL (Less than 2); WBC/HPF 0-3 HPF (0-3); pH, Urine 6.5 (5.0-9.0)
[2023-07-20 23:27] LABS: Urine Culture Reflex No No
[2023-07-20 23:29] LABS: Amphetamine Not Detected (NotDetected); Barbiturates Screen Not Detected (NotDetected); Benzodiazepine Screen Not Detected (NotDetected); Cocaine Metabolite Screen Not Detected (NotDetected); Methadone Not Detected (NotDetected); Methamphetamine Not Detected (NotDetected); Opiate Screen Not Detected (NotDetected); Oxycodone Screen Not Detected (NotDetected); Phencyclidine (PCP) Not Detected (NotDetected); THC/Cannabinoid Screen Not Detected (NotDetected); Tricyclic Screen Not Detected (NotDetected)
[2023-07-21] MEDS ORDERED: hydrALAZINE 20 MG/ML VIAL SLOW IVP PRN (00:06)
[2023-07-21] MEDS ORDERED: Ondansetron ODT 4 MG TAB PO PRN (00:06)
[2023-07-21] MEDS ORDERED: Ondansetron PF 4 MG/2 ML Vial IVP PRN (00:06)
[2023-07-21] MEDS ORDERED: Acetaminophen 650 MG Suppository PR PRN (00:06)
[2023-07-21] MEDS ORDERED: Electrolyte Replacement Protocol 1 EACH FS PRN (00:15)
[2023-07-21 00:54] LABS: Magnesium 2.2 mg/dL (1.6-2.6)
[2023-07-21 01:03] VITALS: BMI 40.5
[2023-07-21] MEDS: Potassium Chloride 20 MEQ TAB PO SCH ×2 (01:27→09:34)
[2023-07-21 05:16] LABS: #Basophils 0.03 10x3/uL (0.0-0.2); %Basophils 0.4 % (0.0-1.0); %Eosinophils 0.5 % (0.0-10.0); %Lymphocytes 28.4 % (21.0-51.0); %Monocytes 12.5 % (0.0-10.0); Hematocrit 38.9 % (36.0-47.0); Hemoglobin 12.9 g/dL (12.0-16.0); Mean Corpuscular HGB CONC 33.2 g/dL (32.0-36.0); Mean Corpuscular Hemoglobin 28.7 pg (27.0-31.0); Mean Corpuscular Volume 86.4 fL (78.0-98.0); Mean Platelet Volume 9.5 fL (7.4-10.4); Platelet Count 322 10x3/uL (130-400); RBC Distribution Width 13.2 % (11.5-14.5)
[2023-07-21 05:21] LABS: Anion Gap 13 mmol/L (10-20); BUN (Urea Nitrogen) 11 mg/dL (9.8-20.1); Calc. Creatinine Clearance 137 mL/min (70-130); Calcium 8.7 mg/dL (7.8-10.44); Carbon Dioxide 21 mmol/L (23-31); Chloride 110 mmol/L (98-107); Cholesterol 133 mg/dl (< 200 Desired); Estimated GFR 91; Glucose 94 mg/dL (80-115); HDL Cholesterol 45 mg/dL (>60 Neg Risk); LDL Cholesterol, Calculated 69 mg/dL; Potassium 3.5 mmol/L (3.5-5.1); Sodium 140 mmol/L (136-145); Triglycerides 93 mg/dL (Less than 150)
[2023-07-21] MEDS: Acetaminophen 325 MG TAB PO PRN (08:01)
[2023-07-21] MEDS: Aspirin 81 mg Enteric Coated Tablet PO SCH (09:34)
[2023-07-21] MEDS: Escitalopram Oxalate 10 mg Tablet PO SCH (10:07)
[2023-07-22 05:30] LABS: Anion Gap 14 mmol/L (10-20); Calc. Creatinine Clearance 117 mL/min (70-130); Carbon Dioxide 23 mmol/L (23-31); Chloride 109 mmol/L (98-107); Estimated GFR 75; Glucose 93 mg/dL (80-115); Potassium 4.5 mmol/L (3.5-5.1); Sodium 141 mmol/L (136-145)
[2023-07-22 05:31] LABS: BUN (Urea Nitrogen) 17 mg/dL (9.8-20.1); Magnesium 2.2 mg/dL (1.6-2.6)
[2023-07-22 06:08] LABS: #Basophils 0.06 10x3/uL (0.0-0.2); %Basophils 0.8 % (0.0-1.0); %Eosinophils 1.5 % (0.0-10.0); %Lymphocytes 33.1 % (21.0-51.0); %Monocytes 14.3 % (0.0-10.0); %Neutrophils 49.9 % (42.0-75.0); Hematocrit 41.6 % (36.0-47.0); Hemoglobin 13.4 g/dL (12.0-16.0); Mean Corpuscular HGB CONC 32.2 g/dL (32.0-36.0); Mean Corpuscular Hemoglobin 28.6 pg (27.0-31.0); Mean Corpuscular Volume 88.7 fL (78.0-98.0); Mean Platelet Volume 9.5 fL (7.4-10.4); Platelet Count 339 10x3/uL (130-400); RBC Distribution Width 13.5 % (11.5-14.5); Red Blood Cell (RBC) Count 4.69 mill/uL (4.20-5.40)
[2023-07-22 13:22] VITALS: BP 143/78; TEMP 97.6
== END 2023-07-22 14:21 | disposition home or self-care (01) ==
LOC: ERS 20:35 → 2SE 23:43
PROVIDERS: ADMIT Student in an Organized Health Care Education/Training Program; ATTEND Internal Medicine
DX: R29.818 Other symptoms and signs involving the nervous system (principal); R55 Syncope and collapse; R20.0 Anesthesia of skin; I10 Essential (primary) hypertension; E87.6 Hypokalemia; K58.9 Irritable bowel syndrome, unspecified; E66.9 Obesity, unspecified; Z68.30 Body mass index [BMI] 30.0-30.9, adult; Z79.899 Other long term (current) drug therapy; Z90.49 Acquired absence of other specified parts of digestive tract; Z90.710 Acquired absence of both cervix and uterus; Z88.1 Allergy status to other antibiotic agents
CPT/HCPCS: 36415; 36416; 70450; 70551; 71045; 72141; 80048; 80053; 80061; 80162; 80306; 80307; 81001; 82140; 82550; 83605; 83690; 83735; 83880; 84443; 84484; 85025; 85379; 87040; 87086; 93005; 93880; 94760; 95700; 95711; 95819; G0378

== ENCOUNTER 2023-11-28 10:48 | Outpatient (CLI) | payer BC ==
[~2023-11-28 10:48] MED LIST changes: +Iopamidol 370 76% 100 ML VIAL ONE; -Iopamidol-370 76% 500 ML 1 ML ONE
== END 2023-11-28 10:49 | disposition home or self-care (01) ==
LOC: BICCT 10:48
PROVIDERS: ATTEND Urology
DX: D17.71 Benign lipomatous neoplasm of kidney (principal)
CPT/HCPCS: 36415; 74160; 82565; Q9967

== ENCOUNTER 2024-11-20 08:59 | Outpatient (CLI) | payer BC ==
[2024-11-20 09:35] LABS: Estimated GFR - POC 71.0
[2024-11-20] MEDS ORDERED: Iopamidol 370 76% 100 ML VIAL ONE (10:14)
== END 2024-11-20 09:00 | disposition home or self-care (01) ==
LOC: CT 08:59
PROVIDERS: ATTEND Urology
DX: D17.71 Benign lipomatous neoplasm of kidney (principal); K76.0 Fatty (change of) liver, not elsewhere classified; K57.30 Diverticulosis of large intestine without perforation or abscess without bleeding; M47.899 Other spondylosis, site unspecified; Z90.49 Acquired absence of other specified parts of digestive tract
CPT/HCPCS: 36415; 74160; 82565; Q9967